=== PATIENT | male | born 1970 | race Caucasian/White ===

== ENCOUNTER 2019-12-15 20:08 | Emergency (ER) | payer OTHER, BC ==
[~2019-12-15] VITALS: Ht 177.8 cm; Wt 106.6 kg
[2019-12-15] MEDS ORDERED: OMEPRAZOLE40 MG PO (20:23)
[2019-12-15] MEDS ORDERED: COZAAR 25 MG TA25 M1 PO (20:23)
[2019-12-15] MEDS ORDERED: METFORMIN HCL500 MG PO (20:23)
[2019-12-15] MEDS ORDERED: ZETIA10 MG PO (20:23)
[2019-12-15] MEDS ORDERED: LOPRESSOR50 MG PO (20:23)
[2019-12-15] MEDS ORDERED: GLYBURIDE 5 MG T5 M1 PO (20:23)
[2019-12-15] MEDS ORDERED: LEVEMIR100 UNIT/1 SUBQ (20:24)
[2019-12-15] MEDS ORDERED: NOVOLOG100 UNIT/M SUBQ (20:24)
[2019-12-15] MEDS ORDERED: VOLTAREN GEL 1100 G1 TOP (20:58)
[2019-12-15 21:14] VITALS: BP 157/98
== END 2019-12-15 21:14 | disposition home or self-care (01) ==
LOC: M.ERS 20:08
DX: S46.811A Strain of other muscles, fascia and tendons at shoulder and upper arm level, right arm, initial encounter (principal); E78.5 Hyperlipidemia, unspecified; I10 Essential (primary) hypertension; E11.9 Type 2 diabetes mellitus without complications; K21.9 Gastro-esophageal reflux disease without esophagitis; I25.10 Atherosclerotic heart disease of native coronary artery without angina pectoris; Z95.5 Presence of coronary angioplasty implant and graft; Z88.8 Allergy status to other drugs, medicaments and biological substances; X58.XXXA Exposure to other specified factors, initial encounter; Y93.89 Activity, other specified; Y92.89 Other specified places as the place of occurrence of the external cause; Y99.8 Other external cause status